=== PATIENT | male | born 1970 | race Asian ===

== ENCOUNTER 2022-02-26 14:39 | Outpatient (REF) | payer MEDICAID, SELFPAY ==
[2022-02-26 20:06] LABS: ALT 35 U/L (16-63); AST 22 U/L (15-37); Albumin 3.8 g/dL (3.4-5.0); Alkaline Phosphatase 48 U/L (46-116); Anion Gap 10.9 mmol/L (3-11); BUN 21 mg/dL (7-18); Bilirubin, Total 0.3 mg/dL (0.2-1.0); CO2 26.1 mmol/L (21.0-32.0); CREATININE 0.7 mg/dL (0.70-1.30); Calcium 8.5 mg/dL (8.5-10.1); Calculated LDL 105 mg/dL (<100); Chloride 104 mmol/L (98-107); Cholesterol 199 mg/dL (<200); Glucose 152 mg/dL (74-106); HDL Cholesterol 71 mg/dL (40-60); Potassium 4.1 mmol/L (3.5-5.1); Sodium 141 mmol/L (136-145); Triglyceride 117 mg/dL (<150)
[2022-02-26 20:09] LABS: Vitamin D 25 Total 8.5 ng/mL (30-100)
== END 2022-02-26 14:40 | disposition home or self-care (01) ==
LOC: NCHCN 14:39
PROVIDERS: Visit Provider Nurse Practitioner Family
DX: E55.9 Vitamin D deficiency, unspecified (principal); Z13.220 Encounter for screening for lipoid disorders; Z00.00 Encounter for general adult medical examination without abnormal findings
CPT/HCPCS: 80053; 80061; 82306

== ENCOUNTER 2022-05-31 13:32 | Outpatient (REF) | payer MEDICAID, SELFPAY | END 2022-05-31 13:33 | disposition home or self-care (01) | LOC: NCHCN 13:32 | PROVIDERS: Visit Provider Nurse Practitioner Family | DX: E55.9 Vitamin D deficiency, unspecified (principal); R73.9 Hyperglycemia, unspecified | CPT/HCPCS: 82306 ==